=== PATIENT | male | born 1935 | race Caucasian/White ===

== ENCOUNTER 2016-09-22 15:04 | Emergency (ER) | payer OTHER ==
[~2016-09-22] VITALS: Ht 177.8 cm; Wt 82.0 kg
[~2016-09-22 15:04] MED LIST: AMOX875T PO; ASPI81 PO; B-COTAB41 PO; PROT40TA PO; VITA400D PO; ZOCO40TA PO
[2016-09-22 15:07] VITALS: BP 165/69; PULSE 59; RESP 14; TEMP 98; O2SAT 96
[2016-09-22 16:21] VITALS: O2SAT 97
--- NOTE | 2016-09-22 16:37 | RADRPT ---
EXAM DATE/TIME: 09/22/2016 16:26 [facility] COMPARISON: CHEST SINGLE AP, June 05, 2015, 11:36. INDICATIONS : Chest pain MEDICAL HISTORY : None. SURGICAL HISTORY : None. ENCOUNTER: Initial ACUITY: 2 weeks PAIN SCORE: 3/10 LOCATION: chest FINDINGS: A single view of the chest demonstrates the lungs to be symmetrically aerated without evidence of mas s, infiltrate or effusion. The cardiomediastinal contours are unremarkable. Osseous structures are intact. CONCLUSION: Stable chest with no acute disease Vance Quintero MD on September 22, 2016 at 16:35 Board Certified Radiologist. This report was verified electronically.
--- NOTE | 2016-09-22 16:46 | PD ---
HPI Chief Complaint: Chest Pain Time Seen by Provider: 16:30 Travel History International Travel<30 days: No Contact w/Intl Traveler<30days: No Traveled to known affect area: No History of Present Illness HPI 81yo M with PMH of HLD, former cig smoker presents to the ED with c/o chest pain on and off for 2 weeks. However, when he was playing golf this morning, his chest pain was more severe and he had generalized weakness which he did not have before. Pt does not remember why he sees his marble setter Dr. Kidd but last saw him in 06/2016 for routine check up. Pt last had stress test 3-4 years ago. Chest pain is sometime left sided, sometimes midsternal and waxes and wanes in intensity. Denies any sob, n/v, abdominal pain, fever, cough, focal weakness or numbness. 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 PFSH Past Medical History Depression: Yes Cancer: No Cardiovascular Problems: Yes High Cholesterol: Yes Coronary Artery Disease: Yes Diminished Hearing: No Endocrine: No Genitourinary: No Implanted Vascular Access Dvce: No Musculoskeletal: No Neurologic: No Psychiatric: Yes Reproductive: No Respiratory: Yes Past Surgical History Abdominal Surgery: Yes (HERNIA REPAIR) Other Surgery: Yes Social History Alcohol Use: Yes (3-4 glasses of wine daily) Tobacco Use: No (QUIT 35 YEARS AGO) Substance Use: No Allergies-Medications (Allergen,Severity, Reaction): Coded Allergies: No Known Allergies (Verified , 09/22/16) Reported Meds & Prescriptions Reported Meds & Active Scripts Active Reported B Complex (B-Complex Vitamins) 1 Cap 1 Cap PO DAILY Vitamin D-3 (Cholecalciferol) 1,000 Unit Tab 1,000 Units PO DAILY Aspirin 325 Mg Tab 325 Mg PO DAILY Atorvastatin (Atorvastatin Calcium) 20 Mg Tab 20 Mg PO HS Review of Systems Except as stated in HPI: all other systems reviewed are Neg Physical Exam Narrative GEN: 81yoM not in distress. Skin: Warm and dry. HEAD: Normocephalic, atraumatic. NECK: No JVD. Trachea midline. CV: S1, S2. No murmur. Lungs: CTA B/L, equal breath sounds. Abd: Soft, NT/ND. Ext: Soft calf, no calf tenderness. No edema. Neuro: No focal neurologic deficits. PSYCH: Normal judgment and mood. Data Data Last Documented VS Vital Signs Date Time Temp Pulse Resp B/P Pulse Ox O2 Delivery O2 Flow Rate FiO2 09/22/16 17:41 52 18 161/75 97 Room Air 09/22/16 15:07 98.0 Orders Electrocardiogram (09/22/16 ) Complete Blood Count With Diff (09/22/16 16:16) Basic Metabolic Panel (Bmp) (09/22/16 16:16) Ckmb (Isoenzyme) Profile (09/22/16 16:16) Troponin I (09/22/16 16:16) Chest, Single Ap (09/22/16 16:16) Iv Access Insert/Monitor (09/22/16 16:16) Ecg Monitoring (09/22/16 16:16) Oxygen Administration (09/22/16 16:16) Oximetry (09/22/16 16:16) CKMB (09/22/16 16:26) CKMB% (09/22/16 16:26) Labs Laboratory Tests Test 09/22/16 16:26 White Blood Count 7.1 TH/MM3 Red Blood Count 4.36 MIL/MM3 Hemoglobin 13.1 GM/DL Hematocrit 40.1 % Mean Corpuscular Volume 91.9 FL Mean Corpuscular Hemoglobin 30.1 PG Mean Corpuscular Hemoglobin 32.8 % Concent Red Cell Distribution Width 13.1 % Platelet Count 239 TH/MM3 Mean Platelet Volume 7.9 FL Neutrophils (%) (Auto) 58.9 % Lymphocytes (%) (Auto) 32.8 % Monocytes (%) (Auto) 6.4 % Eosinophils (%) (Auto) 1.3 % Basophils (%) (Auto) 0.6 % Neutrophils # (Auto) 4.1 TH/MM3 Lymphocytes # (Auto) 2.3 TH/MM3 Monocytes # (Auto) 0.5 TH/MM3 Eosinophils # (Auto) 0.1 TH/MM3 Basophils # (Auto) 0.0 TH/MM3 CBC Comment DIFF FINAL Differential Comment Sodium Level 141 MEQ/L Potassium Level 4.3 MEQ/L Chloride Level 105 MEQ/L Carbon Dioxide Level 28.7 MEQ/L Anion Gap 7 MEQ/L Blood Urea Nitrogen 16 MG/DL Creatinine 0.89 MG/DL Estimat Glomerular Filtration 82 ML/MIN Rate Random Glucose 73 MG/DL Calcium Level 8.8 MG/DL Total Creatine Kinase 148 U/L Creatine Kinase MB 2.3 NG/ML Troponin I LESS THAN 0.02 NG/ML MDM Medical Decision Making Medical Screen Exam Complete: Yes Emergency Medical Condition: Yes Interpretation(s) EKG: Sinus bradycardia. LAD. 1st degree AV block. TWI III, aVF, V2, V3. Incomplete RBBB. Q wave III, aVF. Similar to prior. Differential Diagnosis Unstable angina vs. NSTEMI vs. pneumonia Narrative Course 81yo M with CAD here with worsening chest pain and generalized weakness while golfing. Pt seen at the end of my shift and sign out to next team to follow up on labs, CXR and likely admit. Diagnosis Primary Impression: Chest pain Qualified Code: R07.9 - Chest pain, unspecified type Carol Muñoz DO Sep 22, 2016 16:45
[2016-09-22 16:56] LABS: AUTOMATED NEUTROPHIL # 4.1 TH/MM3 (1.8-7.7); BASOPHIL % 0.6 % (0.0-2.0); EOSINOPHIL # 0.1 TH/MM3 (0-0.4); EOSINOPHIL % 1.3 % (0.0-4.0); HEMATOCRIT 40.1 % (39.0-51.0); HEMO FLAGS DIFF FINAL; LYMPH % 32.8 % (9.0-44.0); LYMPHOCYTE # 2.3 TH/MM3 (1.0-4.8); MEAN CELL VOLUME 91.9 FL (80.0-100.0); MEAN CORPUSCULAR HEMOGLOBIN 30.1 PG (27.0-34.0); MEAN CORPUSCULAR HGB CONC 32.8 % (32.0-36.0); MONO % 6.4 % (0.0-8.0); NEUT % 58.9 % (16.0-70.0); PLATELET COUNT 239 TH/MM3 (150-450); RED BLOOD COUNT 4.36 MIL/MM3 (4.50-5.90); RED CELL DISTRIBUTION WIDTH 13.1 % (11.6-17.2); WHITE BLOOD COUNT 7.1 TH/MM3 (4.0-11.0)
[2016-09-22 17:08] LABS: ANION GAP 7 MEQ/L (5-15); BICARBONATE 28.7 MEQ/L (21.0-32.0); BLOOD UREA NITROGEN 16 MG/DL (7-18); CHLORIDE 105 MEQ/L (98-107); GLOMERULAR FILTRATION RATE 82 ML/MIN (>89); POTASSIUM 4.3 MEQ/L (3.5-5.1); SODIUM (NA) 141 MEQ/L (136-145)
[2016-09-22 17:11] LABS: CREATINE KINASE 148 U/L (39-308)
[2016-09-22 17:24] LABS: CKMB 2.3 NG/ML (0.5-3.6)
--- NOTE | 2016-09-22 17:37 | PD ---
Physical Exam Date Seen by Provider: Sep 22, 2016 Narrative Care was assumed from Dr. Muñoz at 1700 pending workup. Patient presented with a several week long history of chest pain. He reports constant chest pain that waxes and wanes. He states that he presented to us for evaluation today because he felt very weak while playing golf today. He further states that he is not at all interested in being admitted to the hospital, even for a 23 hour observation. Data Data Last Documented VS Vital Signs Date Time Temp Pulse Resp B/P Pulse Ox O2 Delivery O2 Flow Rate FiO2 09/22/16 16:21 97 Room Air 09/22/16 16:05 56 18 09/22/16 15:07 98.0 165/69 Orders Electrocardiogram (09/22/16 ) Complete Blood Count With Diff (09/22/16 16:16) Basic Metabolic Panel (Bmp) (09/22/16 16:16) Ckmb (Isoenzyme) Profile (09/22/16 16:16) Troponin I (09/22/16 16:16) Chest, Single Ap (09/22/16 16:16) Iv Access Insert/Monitor (09/22/16 16:16) Ecg Monitoring (09/22/16 16:16) Oxygen Administration (09/22/16 16:16) Oximetry (09/22/16 16:16) CKMB (09/22/16 16:26) CKMB% (09/22/16 16:26) Labs Laboratory Tests Test 09/22/16 16:26 White Blood Count 7.1 TH/MM3 Red Blood Count 4.36 MIL/MM3 Hemoglobin 13.1 GM/DL Hematocrit 40.1 % Mean Corpuscular Volume 91.9 FL Mean Corpuscular Hemoglobin 30.1 PG Mean Corpuscular Hemoglobin 32.8 % Concent Red Cell Distribution Width 13.1 % Platelet Count 239 TH/MM3 Mean Platelet Volume 7.9 FL Neutrophils (%) (Auto) 58.9 % Lymphocytes (%) (Auto) 32.8 % Monocytes (%) (Auto) 6.4 % Eosinophils (%) (Auto) 1.3 % Basophils (%) (Auto) 0.6 % Neutrophils # (Auto) 4.1 TH/MM3 Lymphocytes # (Auto) 2.3 TH/MM3 Monocytes # (Auto) 0.5 TH/MM3 Eosinophils # (Auto) 0.1 TH/MM3 Basophils # (Auto) 0.0 TH/MM3 CBC Comment DIFF FINAL Differential Comment Sodium Level 141 MEQ/L Potassium Level 4.3 MEQ/L Chloride Level 105 MEQ/L Carbon Dioxide Level 28.7 MEQ/L Anion Gap 7 MEQ/L Blood Urea Nitrogen 16 MG/DL Creatinine 0.89 MG/DL Estimat Glomerular Filtration 82 ML/MIN Rate Random Glucose 73 MG/DL Calcium Level 8.8 MG/DL Total Creatine Kinase 148 U/L Creatine Kinase MB 2.3 NG/ML Troponin I LESS THAN 0.02 NG/ML [facility] Supervised Visit with MICHELA: No Narrative Course Last Impressions Chest X-Ray 09/22/16 1616 Signed Impressions: Service Date/Time: Thursday, September 22, 2016 16:26 - CONCLUSION: Stable chest with no acute disease Vance Quintero MD CBC & BMP Diagram 09/22/16 16:26 His CK-MB is 2.3 and his troponin is less than 0.02. 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 I have again asked the patient if he consider admission to 23 hour observation. He says no. He relates his symptoms to a new cholesterol medicine. He states that he started having chest pain about the same time that he started taking a cholesterol medicine. Pain is not exacerbated by exercise and is not relieved by rest. He has had constant pain for 2 weeks. The likelihood of this being cardiac in nature is pretty slim. Diagnosis Primary Impression: Chest pain Qualified Code: R07.9 - Chest pain, unspecified type Referrals: Eugene Kidd MD 3 days Patient Instructions: Chest Pain (DC), General Instructions Additional Instruction: Please return for worsening symptoms Disposition: 01 DISCHARGE HOME Condition: Stable Minerva Oswald MD Sep 22, 2016 17:37
[2016-09-22 17:41] VITALS: BP 161/75; PULSE 52; RESP 18; O2SAT 97
[2016-09-22] MEDS ORDERED: ASPI325T PO (17:57)
[2016-09-22] MEDS ORDERED: ATOR20TA15 PO (17:57)
[2016-09-22] MEDS ORDERED: VITACAP7 PO (17:57)
[2016-09-22] MEDS ORDERED: VITA10003 PO (17:57)
--- NOTE | 2016-09-23 10:19 | EKG ---
Date Performed: 09/22/2016 Time Performed: 15:58:37 PTAGE: 81 years EKG: SINUS BRADYCARDIA WITH FIRST DEGREE AV BLOCK POSSIBLE LEFT ATRIAL ENLARGEMENT INTRAVENTRICU LAR CONDUCTION DELAY POSSIBLE LATERAL MYOCARDIAL INFARCTION ABNORMAL ECG PREVIOUS TRACING : 06/05/2015 23.51 DOCTOR: Roque Thompson Interpretating Date/Time 09/23/2016 10:16:53
== END 2016-09-22 18:30 | disposition home or self-care (01) ==
LOC: NEPA 15:04
DX: R07.9 Chest pain, unspecified (principal); E78.00 Pure hypercholesterolemia, unspecified; I25.10 Atherosclerotic heart disease of native coronary artery without angina pectoris
CPT/HCPCS: 71010; 80048; 82550; 82552; 84484; 85025; 93005